=== PATIENT | male | born 1990 | race Caucasian/White ===

== ENCOUNTER 2017-07-11 16:26 | Emergency (ER) | payer SELFPAY ==
[2017-07-11] MEDS ORDERED: Ketorolac 60 MG/2 ML SDV IM ONE (16:44)
--- NOTE | 2017-07-11 16:47 | EDM.PDOC ---
ED HPI GENERAL MEDICAL PROBLEM - General Chief Complaint: Genitourinary Problem Stated Complaint: PAIN/SWELLING TESTICLE Time Seen by Provider: 07/11/17 16:31 - History of Present Illness INITIAL COMMENTS - FREE TEXT/NARRATIVE: HISTORY AND PHYSICAL: History of present illness: The patient is a 26-year-old male with complaints of right testicular pain and swelling and presents to the ED for evaluation. He says that several days ago he had similar symptoms but they were not as severe they seem to go away in their own. The discomfort and pain started last evening suddenly and has been continuous since that time and the swelling he just noticed several hours ago. He has had no fever chills nausea vomiting or diarrhea and no penile discharge or STD risks. Patient states he is monogamous. Patient denies any dysuria frequency or hematuria and has a history of a hernia repair as an . The patient has been eating and drinking normally and has not taken anything for the pain. He denies any trauma to the area. He says he originates in the right testicle and radiates up the right inguinal area and to his abdomen. His pain does not originate in the flank Review of systems: As per history of present illness and below otherwise all systems reviewed and negative. Past medical history: As per history of present illness and as reviewed below otherwise noncontributory. Surgical history: As per history of present illness and as reviewed below otherwise noncontributory. Social history: No reported history of drug or alcohol abuse. Family history: As per history of present illness and as reviewed below otherwise noncontributory. Physical exam: Gen.: Well-developed well-nourished man who is very jumpy and exam somewhat anxious but is nontoxic appearing. HEENT: Atraumatic, normocephalic, negative for conjunctival pallor or scleral icterus, mucous membranes moist, throat clear, neck supple, nontender, trachea midline. Lungs: Clear to auscultation, breath sounds equal bilaterally, chest nontender. Heart: S1S2, regular rate and rhythm no overt murmurs Abdomen: Soft, nondistended, nontender. Negative for masses or hepatosplenomegaly. Negative for costovertebral tenderness. Pelvis: Stable nontender. Genitourinary: Testicles are descended bilaterally and the right one is larger than the left and there is discrete tenderness with palpation more at the base of the testicle. There is no spermatic cord tenderness and only shoddy inguinal adenopathy. There is no redness or lesions seen. Cremasteric reflex is intact and the lie of the testicle on the right is also normal Rectal: Deferred. Extremities: Atraumatic, negative for cords or calf pain. Neurovascular unremarkable. Neuro: Awake, alert, oriented. Cranial nerves II through XII unremarkable. Cerebellum unremarkable. Motor and sensory unremarkable throughout. Exam nonfocal. Diagnostics: UA urine for gonorrhea and chlamydia testicular ultrasound Therapeutics: Toradol Rocephin and Zithromax I discussed with the patient all testing results and depending STD testing. I will give him Rocephin and Zithromax here as well as Cipro for home and some Tylenol 3 for pain. I advised wearing snug tight briefs for the next several days for comfort and using [id number] Tylenol or ibuprofen during the daytime. I will give him urology for follow-up. Impression: Right testicular pain and swelling, early epididymitis Definitive disposition and diagnosis as appropriate pending reevaluation and review of above. Right Perineal Area Pain Score (Numeric/FACES): 8 - Related Data Allergies Allergy/AdvReac Type Severity Reaction Status Date / Time No Known Allergies Allergy Verified 05/04/15 02:33 Home Meds: Home Meds . [No Known Home Meds] 07/11/17 [History] Past Medical History Other Gastrointestinal History: lactos intalerant Other Neuro History: "bad migraines" - Past Surgical History Other Musculoskeletal Surgeries/Procedures:: broken arm, wrist surgical repair Social & Family History - Tobacco Use Smoking Status *Q: Current Every Day Smoker Years of Tobacco use: 10 Second Hand Smoke Exposure: Yes - Recreational Drug Use Recreational Drug Use: No ED ROS GENERAL - Review of Systems Review Of Systems: ROS reveals no pertinent complaints other than HPI. ED EXAM, GENERAL - Physical Exam Exam: See Below (See dictation) Course - Vital Signs Last Recorded V/S: Last Vital Signs Temp 36.7 C 07/11/17 16:34 Pulse 68 07/11/17 16:34 Resp 14 07/11/17 16:34 BP 135/60 07/11/17 16:34 Pulse Ox 97 07/11/17 16:34 - Orders/Labs/Meds Orders: Active Orders 24 hr Category Date Time Status Scrotum and Contents [US] Stat Exams 07/11/17 16:43 Taken Labs: Laboratory Tests 07/11/17 Range/Units 16:49 Urine Color YELLOW Urine Appearance CLEAR Urine pH 6.0 (5.0-8.0) Ur Specific [place] >= 1.030 (1.001-1.035) Urine Protein NEGATIVE (NEGATIVE) mg/dL Urine Glucose (UA) NEGATIVE (NEGATIVE) mg/dL Urine Ketones NEGATIVE (NEGATIVE) mg/dL Urine Occult Blood NEGATIVE (NEGATIVE) Urine Nitrite NEGATIVE (NEGATIVE) Urine Bilirubin NEGATIVE (NEGATIVE) Urine Urobilinogen 1.0 (<2.0) EU/dL Ur Leukocyte Esterase NEGATIVE (NEGATIVE) Urine RBC 0-1 (0-2/HPF) Urine WBC 0-1 (0-5/HPF) Ur Epithelial Cells RARE (NONE-FEW) Urine Bacteria RARE (NEGATIVE) Meds: Medications Discontinued Medications Generic Name Dose Route Start Last Admin Trade Name Freq PRN Reason Stop Dose Admin Azithromycin 1,000 mg 07/11/17 17:53 Zithromax PO 07/11/17 17:54 ONETIME ONE Ceftriaxone Sodium 250 mg 07/11/17 17:53 Rocephin IM 07/11/17 17:54 ONETIME ONE Ketorolac Tromethamine 60 mg 07/11/17 16:44 07/11/17 16:55 Toradol IM 07/11/17 16:45 60 mg ONETIME ONE Administration Departure - Departure Time of Disposition: 17:58 Disposition: Home, Self-Care 01 Condition: Good Clinical Impression: Testicular pain, right - Discharge Information Referrals: PCP,None [Primary Care Provider] - Forms: ED Department Discharge Additional Instructions: The following information is given to patients seen in the emergency department who are being discharged to home. This information is to outline your options for follow-up care. We provide all patients seen in our emergency department with a follow-up referral. The need for follow-up, as well as the timing and circumstances, are variable depending upon the specifics of your emergency department visit. If you don't have a primary care physician on staff, we will provide you with a referral. We always advise you to contact your personal physician following an emergency department visit to inform them of the circumstance of the visit and for follow-up with them and/or the need for any referrals to a consulting specialist. The emergency department will also refer you to a specialist when appropriate. This referral assures that you have the opportunity for followup care with a specialist. All of these measure are taken in an effort to provide you with optimal care, which includes your followup. Under all circumstances we always encourage you to contact your private physician who remains a resource for coordinating your care. When calling for followup care, please make the office aware that this follow-up is from your recent emergency room visit. If for any reason you are refused follow-up, please contact the [facility] emergency department at and ask to speak to the emergency department charge nurse. [facility] [address] [place] [id number] [facility] Primary care- Internal Medicine and Family [address] [address] Please use antibiotics until they are finished and take pain medication as needed. Use [id number] Tylenol or ibuprofen during the day. Please call and follow-up in our clinic or with our urologist as we discussed in the next several days for reevaluation and further care. Please wear snug brief underwear for support. Return to ER as needed and as discussed - My Orders Last 24 Hours: My Active Orders 07/11/17 16:43 Scrotum and Contents [US] Stat - Assessment/Plan Last 24 Hours: My Active Orders 07/11/17 16:43 Scrotum and Contents [US] Stat
[2017-07-11 16:48] VITALS: BP 135/60
[2017-07-11] MEDS ORDERED: cefTRIAXone 250 MG Vial IM ONE (17:53)
[2017-07-11] MEDS ORDERED: Azithromycin 250 MG Tab PO ONE (17:53)
[2017-07-11] MEDS ORDERED: Lidocaine 1% 20 ML MDV INJECT ONE (17:57)
--- NOTE | 2017-07-12 10:37 | US ---
EXAM DATE: 07/11/17 PATIENT'S AGE: 26 Patient: AVE MATA Facility: [place], [place] Site . Site : 1990 Study: US Testicle [id number]/4/2017 5:28:58 PM Ordering Physician: Yasmany Velasquez Final Report: INDICATION: Scrotal pain right TECHNIQUE: Ultrasound of the scrotum and contents. Sonographic flores-scale images were obtained with color Doppler and spectral waveform analysis of the testicles. COMPARISON: None FINDINGS: Right testicle: 4.4 x 2.6 cm. The testis is normal in echotexture. No masses or suspicious calcifications seen. Normal arterial and venous blood flow present in the testis. Left testicle: 4.2 x 2.0 cm. The testis is normal in echotexture. No masses or suspicious calcifications seen. Normal arterial and venous blood flow present in the testis. Epididymis: Increased blood flow is noted within the right epididymal tail and adjacent scrotal soft tissues. Misc: No sign of hydrocele. No sign of varicocele. Scrotal wall is normal. IMPRESSION: 1. Increased blood flow is noted within the right epididymal tail and adjacent scrotal soft tissues. Clinical correlation recommended to exclude epididymitis. Dictated by Lai Gautam MD @ 07/11/2017 5:47:12 PM Dictated by: Lai Gautam MD @ 07/11/2017 17:47:18 (Electronic Signature) Report Signed by Proxy. REY
--- NOTE | 2017-07-12 10:37 | US ---
EXAM DATE: 07/11/17 PATIENT'S AGE: 26 Patient: AVE MATA Facility: [place], [place] Site . Site : 1990 Study: US Testicle [id number]/[id number] 5:28:58 PM Ordering Physician: Yasmany Velasquez Final Report: INDICATION: Scrotal pain right TECHNIQUE: Ultrasound of the scrotum and contents. Sonographic flores-scale images were obtained with color Doppler and spectral waveform analysis of the testicles. COMPARISON: None FINDINGS: Right testicle: 4.4 x 2.6 cm. The testis is normal in echotexture. No masses or suspicious calcifications seen. Normal arterial and venous blood flow present in the testis. Left testicle: 4.2 x 2.0 cm. The testis is normal in echotexture. No masses or suspicious calcifications seen. Normal arterial and venous blood flow present in the testis. Epididymis: Increased blood flow is noted within the right epididymal tail and adjacent scrotal soft tissues. Misc: No sign of hydrocele. No sign of varicocele. Scrotal wall is normal. IMPRESSION: 1. Increased blood flow is noted within the right epididymal tail and adjacent scrotal soft tissues. Clinical correlation recommended to exclude epididymitis. Dictated by Lai Gautam MD @ 07/11/2017 5:47:12 PM Dictated by: Lai Gautam MD @ 07/11/2017 17:47:18 (Electronic Signature) Report Signed by Proxy. REY
== END 2017-07-11 18:27 | disposition home or self-care (01) ==
LOC: MW.ED 16:26
DX: N45.1 Epididymitis (principal); F17.200 Nicotine dependence, unspecified, uncomplicated; Z98.890 Other specified postprocedural states
CPT/HCPCS: 76870; 81001; 93976; 96372; 96374; 99284; A9270; J0696; J1885; 99282

== ENCOUNTER 2018-04-21 13:03 | Emergency (ER) | payer SELFPAY ==
[2018-04-21 13:24] VITALS: BP 116/77
[2018-04-21] MEDS ORDERED: Ketorolac 60 MG/2 ML SDV IM ONE (13:49)
--- NOTE | 2018-04-21 13:59 | EDM.PDOC ---
ED HPI GENERAL MEDICAL PROBLEM - General Chief Complaint: Back Pain or Injury Stated Complaint: LEGS HURTS Time Seen by Provider: 04/21/18 13:49 Source of Information: Reports: Patient History Limitations: Reports: No Limitations - History of Present Illness INITIAL COMMENTS - FREE TEXT/NARRATIVE: HISTORY AND PHYSICAL: History of present illness: [Isreal is a 27-year-old male here with back pain. He states that 10 years ago he had an IM injection of penicillin, thinks it hit his sciatic nerve and has had trouble with it on and off since then. He states he will start having low back pain and pain down both legs after about half a day of work. He takes motrin as needed for this. He reports he has been working the past 4 days and pain is consistent. He denies any injury, saddle anesthesia, loss of bowel/ bladder control, foot drop, fevers or chills. ] Review of systems: As per history of present illness and below otherwise all systems reviewed and negative. Past medical history: As per history of present illness and as reviewed below otherwise noncontributory. Surgical history: As per history of present illness and as reviewed below otherwise noncontributory. Social history: No reported history of drug or alcohol abuse. Family history: As per history of present illness and as reviewed below otherwise noncontributory. Physical exam: General: patient lying comfortably in no acute distress HEENT: Atraumatic, normocephalic, pupils reactive, negative for conjunctival pallor or scleral icterus Lungs: Clear to auscultation, breath sounds equal bilaterally, chest nontender. Heart: S1S2, regular, negative for clicks, rubs Musculoskeletal: No tenderness to palpation of cervical, thoracic, or lumbar paraspinals. Tenderness to palpation and muscle spasm noted of right lumbar paraspinals. Negative straight leg tests bilaterally. Extremities: Atraumatic, negative for cords or calf pain. Neurovascular unremarkable. Neuro: Awake, alert, oriented. Cranial nerves II through XII unremarkable. Cerebellum unremarkable. Motor and sensory unremarkable throughout. Exam nonfocal. Notes: Diagnostics: [] Therapeutics: [Toradol 60mg IM] Impression: [Lumbar radiculopathy] Plan: [#1 Take flexeril and diclofenac as instructed #2 Follow up with primary care provider #3 Return to emergency department as needed as discussed] Definitive disposition and diagnosis as appropriate pending reevaluation and review of above. Bilateral Leg Pain Score (Numeric/FACES): 8 - Related Data Allergies Allergy/AdvReac Type Severity Reaction Status Date / Time No Known Allergies Allergy Verified 04/21/18 13:21 Home Meds: Home Meds Cyclobenzaprine [Flexeril] 10 mg PO BEDTIME #10 tab 04/21/18 [Rx] Diclofenac Sodium [Voltaren] 75 mg PO BIDMEALS #20 tab.cr 04/21/18 [Rx] Past Medical History - Past Health History Medical/Surgical History: Denies Medical/Surgical History Other Gastrointestinal History: lactos intalerant Other Genitourinary History: Hernea surgery at 4 days old Other Neuro History: "bad migraines" - Infectious Disease History Infectious Disease History: Reports: None - Past Surgical History Other Musculoskeletal Surgeries/Procedures:: broken arm, wrist surgical repair Social & Family History - Family History Family Medical History: Noncontributory - Tobacco Use Smoking Status *Q: Current Every Day Smoker Years of Tobacco use: 11 Packs/Tins Daily: 0.2 - Caffeine Use Caffeine Use: Reports: None - Recreational Drug Use Recreational Drug Use: No ED ROS GENERAL - Review of Systems Review Of Systems: ROS reveals no pertinent complaints other than HPI. ED EXAM,LOWER BACK PAIN/INJURY - Physical Exam Exam: See Below (see dictation) Course - Vital Signs Last Recorded V/S: Last Vital Signs Temp 36.8 C 04/21/18 13:21 Pulse 89 04/21/18 13:21 Resp 16 04/21/18 13:21 BP 116/77 04/21/18 13:21 Pulse Ox 97 04/21/18 13:21 - Orders/Labs/Meds Orders: Active Orders 24 hr Category Date Time Status Ketorolac [Toradol] Med 04/21/18 13:49 Once 60 mg IM ONETIME ONE Departure - Departure Time of Disposition: 14:00 Disposition: Home, Self-Care 01 Condition: Good Clinical Impression: Lumbar radiculopathy - Discharge Information Prescriptions: Cyclobenzaprine [Flexeril] 10 mg PO BEDTIME #10 tab Diclofenac Sodium [Voltaren] 75 mg PO BIDMEALS #20 tab.cr Referrals: PCP,None [Primary Care Provider] - Additional Instructions: The following information is given to patients seen in the emergency department who are being discharged to home. This information is to outline your options for follow-up care. We provide all patients seen in our emergency department with a follow-up referral. The need for follow-up, as well as the timing and circumstances, are variable depending upon the specifics of your emergency department visit. If you don't have a primary care physician on staff, we will provide you with a referral. We always advise you to contact your personal physician following an emergency department visit to inform them of the circumstance of the visit and for follow-up with them and/or the need for any referrals to a consulting specialist. The emergency department will also refer you to a specialist when appropriate. This referral assures that you have the opportunity for follow-up care with a specialist. All of these measure are taken in an effort to provide you with optimal care, which includes your follow-up. Under all circumstances we always encourage you to contact your private physician who remains a resource for coordinating your care. When calling for follow-up care, please make the office aware that this follow-up is from your recent emergency room visit. If for any reason you are refused follow-up, please contact the [facility] Emergency Department at and asked to speak to the emergency department charge nurse. [facility] [address] [place] [address] [id number] [address] [address] #1 Take flexeril and diclofenac as instructed #2 Follow up with primary care provider #3 Return to emergency department as needed as discussed - My Orders Last 24 Hours: My Active Orders 04/21/18 13:49 Ketorolac [Toradol] 60 mg IM ONETIME ONE - Assessment/Plan Last 24 Hours: My Active Orders 04/21/18 13:49 Ketorolac [Toradol] 60 mg IM ONETIME ONE
== END 2018-04-21 14:17 | disposition home or self-care (01) ==
LOC: MW.ED 13:03
DX: M54.16 Radiculopathy, lumbar region (principal); F17.210 Nicotine dependence, cigarettes, uncomplicated
CPT/HCPCS: 99283

== ENCOUNTER 2022-11-10 16:54 | Emergency (ER) | payer SELFPAY ==
[2022-11-10 18:21] VITALS: BP 160/85; PULSE 84
== END 2022-11-10 18:18 | disposition home or self-care (01) ==
LOC: MW.ED 16:54
DX: S06.9X9A Unspecified intracranial injury with loss of consciousness of unspecified duration, initial encounter (principal); S01.21XA Laceration without foreign body of nose, initial encounter; Y04.2XXA Assault by strike against or bumped into by another person, initial encounter
CPT/HCPCS: 70450; 70450-26; 73130-26-RT; 73130-RT; 99283